=== PATIENT | female | born 1970 | race Caucasian/White ===

== ENCOUNTER 2024-01-22 06:30 | Emergency (ER) | payer OTHER, SELFPAY ==
[2024-01-22] VITALS (12 sets, daily range): BP systolic 129–166; BP diastolic 81–119; PULSE 52–60; RESP 16; TEMP 36.6; O2SAT 97–100; BMI 22.3
--- NOTE | 2024-01-22 06:57 | CRLHL7_ITS ---
For Patients: As a result of the Century Cures Act, medical imaging exams and procedure reports are released immediately into your electronic medical record. You may view this report before your referring provider. If you have questions, please contact your health care provider. INDICATION: Left-sided pain. COMPARISON: None TECHNIQUE: PA and lateral views of the chest were acquired FINDINGS: TUBES AND LINES: None. HEART AND MEDIASTINUM: The heart size is normal. The mediastinal contour appears normal for patient age. LUNGS AND PLEURAL SPACES: The lungs appear normal.The pleural spaces are unremarkable. OSSEOUS STRUCTURES: Age-appropriate appearance. No acute focal finding. IMPRESSION: No evidence of active pulmonary disease. Dictated by Warren Bailey MD @ 01/22/2024 7:41:29 AM (Electronically Signed)
--- NOTE | 2024-01-22 06:59 | ED_ITS ---
HPI - General Adult General Chief complaint: Chest Pain Stated complaint: Chest Pain Time Seen by Provider: 01/22/24 06:33 Source: patient Mode of arrival: ambulatory Limitations: no limitations History of Present Illness HPI narrative: 53-year-old female presents the emergency department with left-sided chest pain that started about 2-1/2 hours prior to arrival. Pain is located in the left lateral anterior chest wall, high on the chest CT, above the nipple line radiating into the left axilla. Worse with a deep breath. No productive cough, fever or shortness of breath. No prior history of DVT or PE. She reports that she did not try taking any treatments to help with her symptoms. 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 She reports that 1 of them checked her vital signs and reported that her heart rate was irregular. She has no prior history of irregular heartbeat. She does have a modern apple watch and did not receive notifications of a rrhythmia recently. No prior history of echo or Holter monitor that she believes. She thinks that she probably did have a stress test but was about 15 years ago and was reported to be normal. She has been struggling with some ongoing cervical spine pain that radiates down to the levator area. She states that she takes Aleve twice daily for this. She has been recommended to do physical therapy but has not been able to work that into her schedule. No trauma or injury. No prior history of heart failure or valvular heart disease. She is a nonsmoker. She was given aspirin prior to transport to the ED by her nurse coworkers. Denies any other physical ailments, neurological changes, HEENT or GI concerns. No prior surgical history to the neck, chest or back. Did not try any other interventions prior to coming to ED. Past medical history notable for hypothyroidism, has previously been on Synthroid in the past but no longer. Outpatient medications are a combination of hormone replacement therapy medications. Reports that she does not know which doses these are better review of the record shows that she is taking a mg of estradiol and 100 mg of progesterone every night. These are oral and not transdermal. ROS is notable for the chest wall pain otherwise only, otherwise denies times 12 systems. Related Data Home Medications ?Medication ?Instructions ?Recorded ?Confirmed estradiol 1 mg tablet 1 mg PO DAILY 01/22/24 01/22/24 progesterone micronized 100 mg 100 mg PO QPM 01/22/24 01/22/24 capsule Allergies Allergy/AdvReac Type Severity Reaction Status Date / Time No Known Drug Allergies Allergy Verified 01/22/24 06:39 [facility] Social History Do you use any of these nicotine containing products: None Non-prescribed substance use: denies use Exam Const: Vital Signs, click to edit/add: Vital Signs - 24 hr 01/22/24 06:35 01/22/24 06:44 01/22/24 06:47 Temperature 98 F Pulse Rate 59 L 54 L Pulse Rate [Pulse Oximeter] 55 L Respiratory Rate 16 Blood Pressure 158/89 H Blood Pressure [Ri ght Upper Arm] 166/119 H Pulse Oximetry 99 100 100 Oxygen Delivery Me thod Room Air 01/22/24 07:00 01/22/24 07:02 Temperature Pulse Rate 58 L 55 L Pulse Rate [Pulse Oximeter] Respiratory Rate Blood Pressure 151/84 H Blood Pressure [Ri ght Upper Arm] Pulse Oximetry 99 99 Oxygen Delivery Me thod Documenting provider has reviewed patient's vital signs: yes Common normals: no apparent distress General appearance: cooperative, comfortable and well kempt HENMT: Common normals: normocephalic Head and scalp: normocephalic Face and sinus: normal facial exam Mouth: oral and palatal mucosa normal Throat: posterior oropharynx normal Eye: Common normals: conjunctivae normal General eye: normal appearance of both eyes Conjunctiva: conjunctiva(e) normal Neck & C-Spine: Common normals: full ROM and no lymphadenopathy Chest: Common normals: inspection of chest normal and palpation of chest normal Resp: Common normals: normal respiratory effort, no use of accessory muscles and clear to auscultation bilaterally Effort & inspection: able to speak in complete sentences Auscultation: clear to auscultation bilaterally Cardio: Common normals: regular rate and regular rhythm Rate: regular rate Rhythm: regular rhythm Other: Slight early systolic murmur and prominent S2 but no obvious gallop. GI: Common normals: Normal to inspection, nondistended, normoactive bowel sounds present, soft to palpation, non-tender, no hepatosplenomegaly and no masses Palpation: soft and no hepatosplenomegaly Back & Pelvis: Common normals: thoracic and lumbar spine normal to inspection Extremity: Common normals: normal to inspection, normal capillary refill and no pedal edema Neuro: Speech: speech normal Motor exam: no movement abnormalities noted Psych: Common normals: thought process normal Appearance: well kempt Attitude: engaged Activity/motor behavior: appropriate eye contact Mood and affect: euthymic mood Thought process: normal thought process Insight: insight good Judgement: judgment good Skin: Common normals: no rashes or lesions noted General skin exam: no rashes or lesions noted Course Course ED Course: 53-year-old female on oral hormone replacement therapy presenting with left- sided chest wall pain worse with inspiration. No other risk factors for cardiovascular disease. Initial exam is reassuring. Will obtain EKG, typical cardiac labs, chest x-ray. Differential diagnosis including cervical radiculopathy affecting C5-C6 which could radiate down into the chest wall, pulmonary embolism in the setting of oral estrogen use, pleurisy, musculoskeletal pain, acute coronary syndrome, heart failure, atypical pneumonia, shingles though exam was reassuring, referred pain, amongst others. Patient has already been given aspirin. Will obtain the studies as above and await findings. Anticipate handing over care to incoming day shift partner. Will plan for 2nd troponin 90-120 minutes after 1st. Reevaluation(s) Time of Reevaluation #1: 08:02 Reevaluation #1: Patient's symptoms continue to improve. Reviewed normal lab findings. Chest x- ray also reassuring. Second troponin will be drawn about 45 minutes, she declines to wait for this today. I stressed the importance of a 2nd troponin in the workup but she agrees that it does not seem like this is related to her heart.. Suspect musculoskeletal etiology for her chest pain. Would recommend Tylenol, ibuprofen. If she continues to experience symptoms, would recommend primary care follow-up and a a repeat stress test. Did encourage her to pursue the planned physical therapy recommended by her primary care physician. Alarm symptoms reviewed and written instructions provided. Vital Signs Vital signs: Initial Vital Signs Temperature 98 F 01/22/24 06:35 Temperature Source Temporal Artery Scan 01/22/24 06:35 Pulse Rate 55 L 01/22/24 06:35 Respiratory Rate 16 01/22/24 06:35 Blood Pressure 166/119 H 01/22/24 06:35 Blood Pressure Mean 134 H 01/22/24 06:35 Blood Pressure Position Sitting 01/22/24 06:35 Pulse Oximetry 99 01/22/24 06:35 Oxygen Delivery Method Room Air 01/22/24 06:35 Vital Signs Temperature 98 F 01/22/24 06:35 Pulse Rate 55 L 01/22/24 06:35 Respiratory Rate 16 01/22/24 06:35 Blood Pressure 166/119 H 01/22/24 06:35 Pulse Oximetry 99 01/22/24 06:35 Oxygen Delivery Method Room Air 01/22/24 06:35 Temperature 98 F 01/22/24 06:35 Pulse Rate 55 L 01/22/24 07:02 Respiratory Rate 16 01/22/24 06:35 Blood Pressure 151/84 H 01/22/24 07:02 Pulse Oximetry 99 01/22/24 07:02 Oxygen Delivery Method Room Air 01/22/24 06:35 Medications Administered Medications: Discontinued Medications Generic Name Dose Route Start Last Admin Trade Name Freq PRN Reason Stop Dose Admin Aspirin 324 mg 01/22/24 07:16 01/22/24 07:41 Aspirin 81 Mg Tab.Chew PO 01/22/24 07:17 324 mg ONCE ONE Administration Medical Decision Making Lab Data Lab results reviewed: Yes I reviewed the patient's lab results Lab results narrative: Labs all reassuring for age. No significant inflammation, infection. D-dimer not suggestive of PE. Improved blood pressure noted. Labs: Lab Results 01/22/24 Range/Units 07:00 WBC 6.37 (4.50-11.00) K/uL RBC 3.90 L (4.00-5.20) m/uL Hgb 12.6 (12.0-16.0) gm/dL Hct 37.4 (33.0-51.0) % MCV 96 (80-100) fL MCH 32 (26-34) pg MCHC 34 (32-36) gm/dL RDW Coeff of Nino 11.9 (11.5-15.5) % Plt Count 214 (140-440) K/uL Neut % (Auto) 72.8 H (42.0-72.0) % Lymph % (Auto) 18.1 L (20-44) % [place] % (Auto) 6.8 (0.0-11.0) % Eos % (Auto) 2.0 (0.0-7.0) % Baso % (Auto) 0.3 (0.0-3.0) % Neut # (Auto) 4.60 (1.7-7.0) K/uL Lymph # (Auto) 1.20 (0.90-2.90) K/uL [place] # (Auto) 0.40 (0.00-0.90) K/UL Eos # (Auto) 0.13 (0.00-0.50) K/uL Baso # (Auto) 0.02 (0.00-0.30) K/uL Abs Immat Gran (auto) 0.00 (0.00-0.30) K/uL Imm/Tot Granulo (auto) 0.0 % D-Dimer Quant (PE/DVT) 0.52 H (0.00-0.50) ug/ml Sodium 138 (135-149) mmol/L Potassium 4.0 (3.6-5.1) mmol/L Chloride 108 (96-114) mmol/L Carbon Dioxide 27 (20-32) mmol/L Anion Gap 3 L (7-15) mEq/L BUN 19 (7-30) mg/dL Creatinine 0.8 (0.5-1.5) mg/dL Estimated Creat Clear 70.23 Estimated GFR 88 ml/min Glucose 100 (60-115) mg/dL Calcium 8.5 (8.4-10.6) mg/dL Troponin I < 0.01 L (0.01-0.04) ng/mL C-Reactive Protein < 0.5 L (0.5-1.0) mg/dL NT-Pro-B Natriuret Pep 98 pg/mL POC Troponin I 0.00 L (0.01-0.04) ng/ml Imaging Data Chest x-ray: Attestation: I have reviewed the pertinent imaging results. My impression: Normal chest x-ray Radiologist's impression: IMPRESSION: No evidence of active pulmonary disease. Dictated by Warren Bailey MD @ 01/22/2024 7:41:29 AM ECG Data Attestation: I personally reviewed and interpreted this ECG as follows: Prior ECG tracings: not available for review Interpretation: Normal sinus rhythm, rate of 60. Normal intervals and axis. P-waves in lead 2 are little bit enlarged, minimal septal changes that are nondiagnostic for acute ischemia. No significant T-wave abnormalities. Discharge Plan Discharge Clinical Impression: Acute chest wall pain Patient Disposition: Home, Self-Care Condition: Improved Instructions: Chest Wall Pain (ED) Additional Instructions: As we discussed, your blood tests and x-ray are normal. You declined to wait for the 2nd round of blood tests which is reasonable. I would recommend you continue taking 1 Aleve 2 times daily. I would like for you to add in Tylenol arthritis 2 times a day also. I would recommend that those be a couple of hours after the Tylenol and then again early afternoon, or evening based on your needs. I do think that the only solution for you is starting the physical therapy that was recommended by your primary care doctor. If you have escalating symptoms, I would recommend that you seek out a stress test or come to the emergency department if they are sudden and severe. You may return to full work duties unrestricted. Activity Level: No Restrictions Prescriptions: No Action estradiol 1 mg tablet 1 mg PO DAILY progesterone micronized 100 mg capsule 100 mg PO QPM Follow Up/Referrals: Elisa Rueda MD [Primary Care Provider] - Stand Alone Forms: [employer] Info Instructions
[2024-01-22 07:13] LABS: Basophils Absolute Auto 0.02 K/uL (0.00-0.30); Basophils Percent Auto 0.3 % (0.0-3.0); Eosinophils Absolute Auto 0.13 K/uL (0.00-0.50); Hematocrit 37.4 % (33.0-51.0); Hemoglobin* 12.6 gm/dL (12.0-16.0); Lymphocytes Percent Auto 18.1 % (20-44); Mean Corpuscular HGB Conc 34 gm/dL (32-36); Mean Corpuscular Hemoglobin 32 pg (26-34); Mean Corpuscular Volume 96 fL (80-100); Monocytes Percent Auto 6.8 % (0.0-11.0); Neutrophils Percent Auto 72.8 % (42.0-72.0); Platelet Count* 214 K/uL (140-440); RDW Coefficient of Variation % 11.9 % (11.5-15.5); White Blood Count* 6.37 K/uL (4.50-11.00)
[2024-01-22 07:23] LABS: Slide Review Reflex No
[2024-01-22 07:25] LABS: Chloride* 108 mmol/L (96-114); Sodium* 138 mmol/L (135-149)
[2024-01-22 07:28] LABS: Anion Gap 3 mEq/L (7-15); Blood Urea Nitrogen* 19 mg/dL (7-30); Carbon Dioxide* 27 mmol/L (20-32); Creatinine* 0.8 mg/dL (0.5-1.5); Est. Creatinine Clearance* 70.23; Estimated Glomerular Filt Rate 88 ml/min
[2024-01-22 07:29] LABS: Calcium* 8.5 mg/dL (8.4-10.6); Glucose* 100 mg/dL (60-115)
[2024-01-22 07:30] LABS: D Dimer Quantitative* 0.52 ug/ml (0.00-0.50)
[2024-01-22 07:36] LABS: C Reactive Protein* < 0.5 mg/dL (0.5-1.0)
[2024-01-22] MEDS: ASPIRIN 81 MG TAB.CHEW 324 MG PO (07:41)
[2024-01-22 07:42] LABS: NT Pro B Type NatriureticPept* 98 pg/mL; Troponin I* < 0.01 ng/mL (0.01-0.04)
== END 2024-01-22 08:24 | disposition home or self-care (01) ==
PROVIDERS: Emergency Provider Family Medicine; PCP Family Medicine
DX: R07.89 Other chest pain (principal)
CPT/HCPCS: 36415; 71046; 80048; 83880; 84484; 85025; 85379; 86140; 93005; 99284; 99285; A9270

== ENCOUNTER 2025-01-04 16:05 | Outpatient (CLI) | payer OTHER, SELFPAY | END 2025-01-04 16:06 | disposition home or self-care (01) | LOC: NFLDREF 01-10 03:32 | PROVIDERS: Visit Provider Physician Assistant | DX: A69.20 Lyme disease, unspecified (principal) | CPT/HCPCS: 86618 ==

== ENCOUNTER 2025-01-20 19:35 | Emergency (ER) | payer OTHER, SELFPAY ==
--- OUTSIDE RECORDS SUMMARY | 2015-09-01 11:27 | XMS_ITS | Continuity of Care Document ---
Author Organization [facility] Address [address] [address] [place] [address] Phone Care Team Providers Care Logistics Lead Name Role Phone Pricilla Warren MD Unavailable Unavailable Allergies, Adverse Reactions, Alerts Substance Reaction Status Criticality No Known Allergies Active No Inform ation Medications Medication Instructions Dosage Effective Dates (start - stop) Status Comments Synthroid 25 mcg tablet take 1 tablet by oral route every day 25 MCG - Active Procedures Procedure Date Offic/outpt E&m New Mod-ok Advance Directives Directive Yes / No Effective Date File Name No Information Encounters Encounter Description Practice Location Reason(s) For Visit Diagnoses Date Provider Providers Copied on Encounter [facility], [address] [address], [place], [place], [id number], [place] tel:[phone] [facility] No Information 6 Kelvin Pleitez. [address] [place] [address], [place] [address], [place], [place], [id number] , [place]. tel: [phone] Offic/outpt E&m [facility], [address] [address], [place], [id number], [place] tel:[phone] [facility] GI Symptoms or Concerns (chief complaint) Chest pain, unspecifiedHeartb urnAbdominal bloating 6 Kelvin Pleitez. [address] [place] [address], [facility] [address], [place], [place], [id number] , [place]. tel:[phone] Family History Family Member Type Diagnosis Age At Onset Mother Problem (finding) gallbladder disease Immunizations Vaccine Date Status Comments Influenza virus vaccine, inj ectable, quadrivalent, split virus, preservative free, 3 years or older Fluarix Quad administered Source: Other Pro vider Payers Payer name Insurance type Covered constitution party ID Authoriza tion(s) No Information Social History Type Description Quantity Date Captured Comments Alcohol Use Details Unknown Caffeine Use Details Unknown Tobacco Use Status No Information Smoking Status No Information Sex Female Chief Complaint And Reason For Visit No Information Reason For Referral Reason For Referral No Information Plan Of Treatment Date Type Action Status Referral Ordered: EGD Appointment date/timeframe: 11/08/2015 ordered Referral Ordered: Lopez PH Monitor Appointment date/timeframe: -today ordered History Of Present Illness Encounter Date Complaint History Of Prese nt Illness GI Symptoms or Concerns This 45- year-old female began having problems of chest discomfort radiating to the back, belching and burning in the chest, starting in the neck area and then proceeding down to the lower portion of the chest postprandially. This began at the end of April of 2015. She had an extensive and negative evaluation in [place], [place], where she lives. This included negative cardiac stress testing, negative upper endoscopy, negative chest x-ray, negative CT scans of chest and abdomen, and negative labs. Her symptoms are generally postprandially and will occur on a daily basis. She describes it more as a discomfort than actual pain. With that discomfort, she finds that it is difficult to take a deep breath. There are times when it feels as if someone is stepping on her chest. Her appetite is good, but she has sitophobia and she has lost a few pounds. She had a trial of double dose PPI and double dose H2 blockers together for a month, without any relief of her symptoms, so the medication was stopped. She is not actually having overt pyrosis.She denies any nausea or emesis. She denies any bowel difficulties. There is no rectal bleeding. She does have some newer onset gas and bloating, but it is not that uncomfortable, and she does not feel that she needs any further evaluation of that particular problem.Following a HIDA scan with a low (17%) EF, the patient then had a cholecystectomy to see if that would help. She says that the gallbladder did not have any stones and had some mild inflammation.The patient had a followup liver tests yesterday, and those were normal (again). It sounds as if pancreatic tests were drawn, and those results are pending. However, the CT scan showed a normal pancreas.The patient is treated for hypothyroidism with a thyroid replacement as her only medication. 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 She lives with her and two children. She denies any new stressors in her life.I lack many of the old records, which have been requested. Functional Status Date Functional Assessmen t No Information Instructions Date Instruction Additional Infor mation Lopez PH Monitor Related to Hear tburn Lopez PH Monitor Assessments Type Assessment Date No Information Patient Care Teams Name Effective Dates (start - stop) Status Members No Information
--- OUTSIDE RECORDS SUMMARY | 2015-09-01 11:27 | XMS_ITS | Continuity of Care Document ---
Author Organization [facility] Address [address] [address] [place] [address] Phone Care Team Providers Care Transitional Living Specialist Name Role Phone Pricilla Warren MD Unavailable Unavailable Allergies, Adverse Reactions, Alerts Substance Reaction Status Criticality No Known Allergies Active No Inform ation Medications Medication Instructions Dosage Effective Dates (start - stop) Status Comments Synthroid 25 mcg tablet take 1 tablet by oral route every day 25 MCG - Active Procedures Procedure Date Offic/outpt E&m New Mod-nj Advance Directives Directive Yes / No Effective Date File Name No Information Encounters Encounter Description Practice Location Reason(s) For Visit Diagnoses Date Provider Providers Copied on Encounter [facility], [address] [address], [place], [place], [id number], [place] tel:[phone] [facility] No Information 6 Kelvin Pleitez. [address] [place] [address], [place] [address], [place], [place], [id number] , [place]. tel: [phone] Offic/outpt E&m [facility], [address] [address], [place], [id number], [place] tel:[phone] [facility] GI Symptoms or Concerns (chief complaint) Chest pain, unspecifiedHeartb urnAbdominal bloating 6 Kelvin Pleitez. [address] [place] [address], [facility] [address], [place], [place], [id number] , [place]. tel:[phone] Family History Family Member Type Diagnosis Age At Onset Mother Problem (finding) gallbladder disease Immunizations Vaccine Date Status Comments Influenza virus vaccine, inj ectable, quadrivalent, split virus, preservative free, 3 years or older Fluarix Quad administered Source: Other Pro vider Payers Payer name Insurance type Covered libertarian ID Authoriza tion(s) No Information Social History [...] had an extensive and negative evaluation in [place], [place], where she lives. This included negative [...] her only medication. 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 She lives with her and two children. [...]
--- OUTSIDE RECORDS SUMMARY | 2025-01-20 19:37 | XMS_ITS | Clinical Summary ---
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 0 Active estradioL 1 mg tabletIndicatio ns:Vasomotor symptoms due to menopause Take 1 Tablet (1 mg) by mouth once daily. 90 Tablet 3 08/24/2024 Active progesterone micronized 100 mg capsuleIndicati ons:Vasomotor symptoms due to menopause Take 1 Capsule (100 mg) by mouth at bedtime. 90 Capsule 3 08/24/2024 Active moxifloxacin (Vigamox) 0.5 % ophthalmic solutionIndicat ions:Cornea abrasion, right, initial encounter Place 1 Drop into right eye four times daily for 7 days. 2.8 mL 01/14/2025 Active erythromycin ophthalmic ointment 0.5%Indications :Cornea abrasion, right, initial encounter Place 1/8th inch ribbon inside the right lower lid before bed for 1 week 3.5 g 01/14/2025 Active Active Problems Problem Noted Date Diagnosed Date Renal cyst 04/30/2019 Iritis, recurrent 07/04/2017 HLA B27 (HLA B27 positive) 07/04/2017 Acute chest wall pain 07/13/2015 Overview (07/13/2015): EGD 06/2015 possible mild reflux Subclinical hypothyroidism 05/22/2012 Myxoid tumor of left thigh, s/p resection 2009 Overview (08/26/2009): MRI Jun 2009: 5cm mass in left thigh, needs Orthopedic Oncologist evaluation. 07/20/09: saw Dr. Bustamante at [facility] with biopsy. July 2009: surgical excision of mass: pathology intramuscular Myxoma, follow up with Dr. Bustamante only as needed. Pap smear for cervical cancer screening Overview (05/26/2021): 04/2021 NIL/HPV negative. Plan: Pap/HPV due 04/2026 Resolved Problems Problem Noted Date Diagnosed Date Resolved Date Thyroid nodule 05/17/2023 08/24/2024 Encounters Date Type Department Care Team Description 01/14/2025 2:40 PM CDT Office Visit [facility] [address] [facility] [place] [address] Carlin Hunter, OD Eye Problem (scratch on eye) 01/14/2025 Travel from Last 3 Months Immunizations Immunization Administration Dates Next Due COVID-19 vaccine (Moderna 10 0mcg/0.5mL) PF, MDV 03/27/2021,06/28/2020,05/31/2020 Influenza A (H1N1), Inactivated 04/03/2023 Influenza, IIV3 (Age >=3 years) 03/13/2016,03/11 Influenza, IIV4 02/18/2022,04/04/2014 Influenza, IIV4 (=>6mos) MDV 02/17/2018 Td (Age >=7 Years) 02/09/2004 Td, Preservative Free (age >= 7 Years) 8 Tdap 03/24/2007 Family History Medical History Relation Name Comments Other Father pace maker Cancer Maternal Grandmother liver Hypertension Mother Genetic Other none Cancer Paternal Grandmother kidney Cancer-breast Paternal Grandmother diagno sed in her 40's Relation Name Status Comments Father Maternal Grandmother Mother Other Paternal Grandmother Social History Tobacco Use Types Packs/Day Years Used Date Smoking Tobacco: Never Smokeless Tobacco: Never Tobacco Cessation:Counseling Given: Yes Alcohol Use Standard Drinks/Week Comments Yes 1 (1 standard drink = 0.6 oz pur e alcohol) on occasion PHQ-2 Answer Date Recorded PHQ-2 TOTAL SCORE 0 10/18/2023 Social Connections Answer Date Recorded Do you often feel lonely or isolated from those around you? 0 08/23/2024 Financial Resource Strain Answer Date R ecorded Difficulty of Paying Living Expenses 3 08/23/2024 Difficulty of Paying Living Expenses Not on file 08/23/2024 Food Insecurity Answer Date Recorded Do you worry your food will run out before you are able to buy more? 1 08/23/2024 Transportation Needs Answer Date Record ed Does lack of transportation keep you from medica l appointments? 1 08/23/2024 Does lack of transportation keep you from work, meetings or getting things that you need? 1 08/23/2024 Housing Stability Answer Date Recorded What is your housing situation today? 1 08/23/2024 Utilities Answer Date Recorded Do you have trouble paying f or utilities (for example, heat, electricity, water, phone)? 1 08/23/2024 Comments No Sex and Gender Information Value Date Recorded Sex Assigned at Not on file Legal Sex Female 6:19 AM MEDICAL CLAIMS SPECIALIST Gender Identity Not on file Sexual Orientation Not on file Occupation Industry Job Start Date Job End Date Not on file Not on file Not on file Not on file Obstetrics History Para Term AB IAB SAB Ectopic Multiple Livin g Live Births 2 2 1 1 0 0 0 0 2 2 Date Outcome GA Total Labor Labor/2nd/3rd Weight Sex Type Anes PTL Ruthann A1 A5 Name Clin Living Term Living Last Filed Vital Signs Vital Sign Reading Time Taken Comments Blood Pressure 144/85 08/24/2024 7:45 AM CDT Pulse 52 08/24/2024 7:45 AM CDT Temperature 36.8 C (98.2 F) 05/17/2023 7:47 AM MEDICAL CLAIMS SPECIALIST Respiratory Rate 16 06/08/2019 2:57 PM MEDICAL CLAIMS SPECIALIST Oxygen Saturation 100% 08/24/2024 7:45 AM CDT Inhaled Oxygen Concentration - - Weight 59.9 kg (132 lb) 08/24/2024 7:45 AM CDT Height 162.6 cm (5' 4) 08/24/2024 7:45 AM CDT Body Mass Index 22.66 08/24/2024 7:45 AM CDT Plan of Treatment Health Maintenance Due Date Last Done Comments Hepatitis C screening for ag e 18-79 1988 Hepatitis B series for 19+ ( 1 of 3 - 19+ 3-dose series) 1989 Pneumococcal series for age 50+ (1 of 1 - PCV) 2020 Zoster (shingles) series for age 50+ (1 of 2) 2020 Depression screening for age 12+ 10/17/2024 10/18/2023, 05/03/2022, 04/28/2021, Additional history exists COVID-19 vaccine series ( season) 2025 02/28/2022, 03/27/2021, 06/28/2020, Additional history exists Influenza Vaccine (#1) 2025 , 02/17/2018, 03/13/2016, Additional history exists Mammogram for age 45-75 06/08/2025 06/08/19, 05/16/2023, 03/05/2022, Additional history exists BMI (ht and wt on same day) for age 18+ 08/24/2025 08/24/2024, 05/17/2023, 05/03/2022, Additional history exists Pap test for age 21-65 04/26/2026 , 04/26/2021, 07/03/2017, Additional history exists Tetanus booster 07/03/2027 07/03/2017, 09/2006, 02/09/2004 Fecal testing sDNA-FIT ([place] guard) for age 45-75 09/15/2027 09/14/2024, 05/15/2021, 05/15/2021 Lipids for age 45-75 08/19/2029 08/19/2024, 05/17/2023, 07/03/2017, Additional history exists RSV vaccine for adults or (1 - 1-dose 75+ series) 2045 HIV for age 15-65 Completed 02/15/2016 Procedures Procedure Name Priority Date/Time Associated Diagnosis Comments SDNA-FIT EXTERNAL (COLOGUARD) Routine 09/14/2024 5:20 AM CDT Colon cancer screening LIPID PANEL W REFLEX MEASURED LDL Routine 08/19/2024 8:07 AM CDT Screening for hyperlipidemia Annual physical exam XR MAMMO GURJIT BILAT SCREEN Routine 06/08/2024 7:13 AM MEDICAL CLAIMS SPECIALIST Visit for screening mammogram HPV HIGH RISK Routine 04/26/2021 3:17 PM MEDICAL CLAIMS SPECIALIST Screening for cervical cancer ANTI HIV 1/2 Routine 02/15/2016 5:16 PM CDT Eye inflammation from Last 3 Months or Most Recently Relevant to Health Maintenance Results * SDNA-FIT EXTERNAL (COLOGUARD) (09/14/2024 5:20 AM CDT) NONINV COLON CA DNA+OCC BLD SCRN STL-IMP Negative Negative 09/17/2024 9:45 PM CDT [facility] (CLIA #:[id number]) Comment: The Cologuard (TM) test was performed on this specimen. NEGATIVE TEST RESULT. A negative Cologuard result indicates a low likelihood that a colorectal cancer (CRC) or advanced adenoma (adenomatous polyps with more advanced pre-malignant features) is present. The chance that a person with a negative Cologuard test has a colorectal cancer is less than 1 in 1500 (negative predictive value >99.9%) or has an advanced adenoma is less than 5.3% (negative predictive value 94.7%). These data are based on a prospective cross-sectional study of 10,000 individuals at average risk for colorectal cancer who were screened with both Cologuard and colonoscopy. (Karena Nicole et al, N Engl J Med 2014;370(14):1286- 1297) The normal value (reference range) for this assay is negative. COLOGUARD RE-SCREENING RECOMMENDATION: Periodic colorectal cancer screening is an important part of preventive healthcare for asymptomatic individuals at average risk for colorectal cancer. Following a negative Cologuard result, the [place] [employer] Society and U.S. Multi-Society Task Force screening guidelines recommend a Cologuard re-screening interval of 3 years. References: [place] [employer] Guideline for Colorectal Cancer Screening: https://www.cancer.org/cancer/hfmbz-agrdqe-koftoc/ajaxringo-bgrielana-ypqdzsn/ac s-rec ommendations.html.; Tyler CARL, Bhavik FAJARDO, Hao SolanoK, Colorectal Cancer Screening: Recommendations for Physicians and Patients from the U.S. Multi-Society Task Force on Colorectal Cancer Screening , Am J Gastroenterology 2017; 112:6987-7012. TEST DESCRIPTION: Composite algorithmic analysis of stool DNA-biomarkers with hemoglobin immunoassay. Quantitative values of individual biomarkers are not reportable and are not associated with individual biomarker result reference ranges. Cologuard is intended for colorectal cancer screening of adults of either sex, 45 years or older, who are at average-risk for colorectal cancer (CRC). Cologuard has been approved for use by the U.S. FDA. The performance of Cologuard was established in a cross sectional study of average-risk adults aged 50-84. Cologuard performance in patients ages 45 to 49 years was estimated by sub-group analysis of near-age groups. Colonoscopies performed for a positive result may find as the most clinically significant lesion: colorectal cancer [4.0%], advanced adenoma (including sessile serrated polyps greater than or equal to 1cm diameter) [20%] or non- advanced adenoma [31%]; or no colorectal neoplasia [45%]. These estimates are derived from a prospective cross-sectional screening study of 10,000 individuals at average risk for colorectal cancer who were screened with both Cologuard and colonoscopy. (Karena Levy. et al, N Engl J Med 2014;370(14):1999-6027.) Cologuard may produce a false negative or false positive result (no colorectal cancer or precancerous polyp present at colonoscopy follow up). A negative Cologuard test result does not guarantee the absence of CRC or advanced adenoma (pre-cancer). The current Cologuard screening interval is every 3 years. ([place] [employer] Society and U.S. Multi-Society Task Force). Cologuard performance data in a 10,000 patient pivotal study using colonoscopy as the reference method can be accessed at the following location: www.Authorea/results. Additional description of the Cologuard test process, warnings and precautions can be found at www.cologuard.com. Stool specimen (specimen) (Rectum) 09/14/2024 5:20 AM CDT 09/15/2024 9:24 AM CDT Nedra Drake MD URINE Fi nal Result [facility] (CLIA #:[id number]) [address] [place] [address], * LIPID PANEL W REFLEX MEASURED LDL (08/19/2024 8:07 AM CDT) CHOLESTEROL, TOTAL 178 <200 mg/dL [facility] HDL CHOLESTEROL 64 > OR = 50 mg/dL [facility] TRIGLYCERIDES 105 <150 mg/dL [facility] LDL-CHOLESTEROL 94 mg/dL (calc) [facility] Comment: Reference range: <100 Desirable range <100 mg/dL for primary prevention; <70 mg/dL for patients with CHD or diabetic patients with > or = 2 CHD risk factors. LDL-C is now calculated using the Mil-Hassan calculation, which is a validated novel method providing better accuracy than the Friedewald equation in the estimation of LDL-C. Mil SS et al. NATALEE. 2013;310(19): 2725-1264 (http://education.[employer]/faq/ZEF036) CHOL/HDLC RATIO 2.8 <5.0 (calc) [facility] NON HDL CHOLESTEROL 114 <130 mg/dL (calc) [facility] Comment: For patients with diabetes plus 1 major ASCVD risk factor, treating to a non-HDL-C goal of <100 mg/dL (LDL-C of <70 mg/dL) is considered a therapeutic option. Blood BLOOD SPECIMEN / Unknown 08/19/2024 8:07 AM CDT 08/19/2024 8:08 AM CDT us Nedra Drake MD CHEMISTRY Fi nal Result [facility] [address] [place] [address], [facility] [address] [place] [address] * XR MAMMO GURJIT BILAT SCREEN (06/08/2024 7:13 AM MEDICAL CLAIMS SPECIALIST) Anatomical Region Laterality Modality BREASTS, Breast Left, Breast Right Bilateral Mammography Impressions 06/10/2024 1:33 PM MEDICAL CLAIMS SPECIALIST There is no radiographic evidence for malignancy. Recommend annual mammograms. MAMMOGRAM ASSESSMENT: ACR 1 Negative PATIENTS: You will also receive a letter with your examination results in an easy to read format. If you have questions about your results, please contact your referring provider. Narrative 06/10/2024 1:33 PM MEDICAL CLAIMS SPECIALIST For Patients: As a result of the Cures Act, medical imaging exams and procedure reports are released immediately into your electronic medical record. You may view this report before your referring provider. If you have questions, please contact your health care provider. XR MAMMO GURJIT BILAT SCREEN [[id number]] CLINICAL HISTORY: This is an asymptomatic 54 y.o. patient. INDICATION FOR EXAM: Mammogram Screening. TECHNIQUE: CC & MLO views were obtained. This study was evaluated with the assistance of Computer-Aided Detection. Breast Tomosynthesis was used in interpretation. COMPARISON FILM: Yes [facility]23 [facility] 03[facility]22 [facility] FINDINGS: There are scattered areas of fibroglandular density. There are no dominant masses, suspicious micro calcifications or areas of architectural distortion. Nedra Drake MD MAMMO Fi nal Result * HPV HIGH RISK (04/26/2021 3:17 PM MEDICAL CLAIMS SPECIALIST) TYPE 16 Negative Negative 04/28/2021 2:51 PM MEDICAL CLAIMS SPECIALIST [facility] TYPE 18 Negative Negative 04/28/2021 2:51 PM MEDICAL CLAIMS SPECIALIST [facility] OTHER HIGH RISK TYPES Negative Negative 04/28/2021 2:51 PM MEDICAL CLAIMS SPECIALIST [facility] Other (Cervical) Non-Blood / Unknown 04/26/2021 3:17 PM MEDICAL CLAIMS SPECIALIST 04/27/2021 11:43 AM MEDICAL CLAIMS SPECIALIST Narrative [facility] - 04/28/2021 2:51 PM MEDICAL CLAIMS SPECIALIST HPV types 16, 18, 31, 33, 35, 39, 45, 51, 52, 56, 58, 59, 66 and 68 DNA were undetectable or below the pre-set threshold. Methodology: Jina Wilfredo 4800 HPV Test us Elisa Rueda MD MICROBIOLOGY Final Result [facility] [address] [place] [address], * ANTI HIV 1/2 (02/15/2016 5:16 PM CDT) HIV-1/HIV-2 ANTIBODY Non-Reacti ve Non-Reacti ve 02/16/2016 3:02 PM CDT [facility] Blood BLOOD SPECIMEN / Unknown Venipuncture / Unknown 02/15/2016 5:16 PM CDT 02/15/2016 5:16 PM CDT Narrative [facility] - 02/16/2016 3:02 PM CDT HIV-1 p24 and HIV-1/HIV-2 Ab not detected us Elisa Rueda MD SEND OUTS Final Result [facility] [address] [place] [address], from Last 3 Months or Most Recently Relevant to Health Maintenance Insurance [employer] ELECT Care Teams Lithographic Proofer Apprentice Relationship Specialty Start Date End Date Nedra Drake MD [address] [place] [address] PCP - General Family Practice 05/01/23 Raman Godwin MD [address] [place] [facility] [address] [place] [address] Rheumatology Rheumatology 07/10/17
[2025-01-20 19:43] VITALS: BP 170/90; PULSE 60; RESP 18; TEMP 36.8; O2SAT 98; BMI 21.5
--- NOTE | 2025-01-20 19:53 | CRLHL7_ITS ---
For Patients: As a result of the Century Cures Act, medical imaging exams and procedure reports are released immediately into your electronic medical record. You may view this report before your referring provider. If you have questions, please contact your health care provider. Indication: Right eye swelling, known herpes zoster ophthalmicus Technique: CT of the orbits following 62 mL Isovue 370 IV contrast. Comparison: Same-day CT head Findings: Brain: Better assessed on same day CT head. Orbits: Extensive right periorbital soft tissue edema. Mild conjunctival hyperemia. No significant intraorbital abnormality is appreciated. No fracture. Maxillofacial structures; visualized maxillofacial structures beyond the orbits are grossly unremarkable. Sinuses: Unremarkable. Other: No other significant abnormality appreciated. Impression: Extensive right periorbital soft tissue edema and conjunctival hyperemia, otherwise unremarkable examination. Please note that all CT scans at this facility use dose modulation, iterative reconstruction, and/or weight-based dosing when appropriate to reduce radiation dose to as low as reasonably achievable. Dictated by Patricio Henriquez MD @ 01/20/2025 9:08:19 PM (Electronically Signed)
[2025-01-20 20:00] LABS: Hematocrit 38.9 % (33.0-51.0); Hemoglobin* 13.1 gm/dL (12.0-16.0); Immature Granulocytes Abs Auto 0.00 K/uL (0.00-0.30); Immature Granulocytes Pct Auto 0.0 %; Lymphocytes Absolute Auto 1.50 K/uL (0.90-2.90); Mean Corpuscular HGB Conc 34 gm/dL (32-36); Mean Corpuscular Hemoglobin 31 pg (26-34); Mean Corpuscular Volume 93 fL (80-100); RDW Coefficient of Variation % 11.5 % (11.5-15.5); Red Blood Count 4.18 m/uL (4.00-5.20); Slide Review Reflex No; White Blood Count* 3.91 K/uL (4.50-11.00)
[2025-01-20] MEDS: LACTATED RINGERS 1000 ML 1,000 ML IV (20:02)
[2025-01-20] MEDS: METOCLOPRAMIDE HCL 5 MG/ML INJ 10 MG IVP (20:02)
[2025-01-20 20:03] VITALS: TEMP 36.8
[2025-01-20 20:11] LABS: Chloride* 104 mmol/L (96-114); Potassium* 3.7 mmol/L (3.6-5.1); Sodium* 135 mmol/L (135-149)
[2025-01-20 20:14] LABS: Anion Gap 4 mEq/L (7-15); Blood Urea Nitrogen* 14 mg/dL (7-30); Calcium* 8.5 mg/dL (8.4-10.6); Carbon Dioxide* 27 mmol/L (20-32); Creatinine* 0.8 mg/dL (0.5-1.5); Est. Creatinine Clearance* 69.42; Estimated Glomerular Filt Rate 88 ml/min; Glucose* 131 mg/dL (60-115)
--- NOTE | 2025-01-20 20:17 | ED.SKABFB ---
HPI - Skin/Abscess/Foreign Bdy General Date Seen: 01/20/25 Chief complaint: Skin/Abscess/Foreign Body Stated complaint: shingles around eyes Time Seen by Provider: 01/20/25 19:47 Source: patient Mode of arrival: ambulatory Limitations: no limitations History of Present Illness HPI narrative: Patient is a 54-year-old female presenting to the emergency department for headache. She was diagnosed with herpes zoster ophthalmicus on 01/17/2025. She began having eye pain on 01/13 and developed blisters along the right orbit on 01/16/25. She went to urgent care on 01/17 and was started on valacyclovir and gabapentin. She saw [facility] that day and was also started on eyedrops for her right eye. Since then patient has noticed increased swelling around the right eye is developing headache. She states she feels like the headache is from all the pressure from the eye swelling. She states she is unable to open the right eye due to the swelling but the pain is tolerable. She says mostly just discomfort. Her main complaint is a headache which she rates as an 8/10 frontal headache. Denies having headache like this before. States it has been going on for the past few days. Patient spoke to her lap hand tool today who told her to come to the emergency department. I did speak to the on-call provider for [facility] who asked us to do a CT scan to rule out any abscess or orbital cellulitis. Patient denies when headedness, dizziness, chest pain, shortness of breath, fevers, chills. No other concerns noted although she does state she feels like there is some swelling starting developed to the medial portion of her left eye. Related Data Home Medications ?Medication ?Instructions ?Recorded ?Confirmed estradiol 1 mg tablet 1 mg PO DAILY 01/22/24 12/21/24 progesterone micronized 100 mg 100 mg PO QPM 01/22/24 12/21/24 capsule erythromycin 5 mg/gram (0.5 %) eye ophthalmic (eye) QPM 01/17/25 01/17/25 ointment moxifloxacin 0.5 % eye drops drp ophthalmic (eye) 01/17/25 01/17/25 Previous Rx's ?Medication ?Instructions ?Recorded gabapentin 300 mg capsule 300 mg PO BID #60 caps 01/17/25 valacyclovir 1 gram tablet 1,000 mg PO QID 7 days #28 tabs 01/17/25 ondansetron 4 mg disintegrating 4 mg PO Q6H #20 tabs 01/20/25 tablet oxycodone 5 mg tablet 5 mg PO Q6H PRN pain #4 tabs 01/20/25 Allergies Allergy/AdvReac Type Severity Reaction Status Date / Time No Known Drug Allergies Allergy Verified 01/17/25 15:00 Review of Systems Status of ROS: Reports: 10 or more systems reviewed and unremarkable except as noted in History and below PFSH PFS Social History Smoking Status: Never smoker Do you use any of these nicotine containing products: None Non-prescribed substance use: denies use Exam Narrative: Exam Narrative: Const: Well-nourished, Well-developed, in mild distress Eyes: Swollen left eye with vesicular lesions around it at varying stages of age. Very mild swelling noted to the medial aspect of the left eye. HENT: Atraumatic external nose and ears. Moist mucous membranes. Neck: Symmetric, trachea midline, No thyromegaly. CVS: RRR, No murmurs or gallops. Peripheral pulses 2+ and equal in all extremities RESP: Unlabored respiratory effort. Clear to auscultation bilaterally. GI: Nontender/Nondistended, No rebound or guarding. MSK:Extremities w/o deformity, Normal Active ROM Skin: Warm, Dry. No rashes or lesions. Neuro: Normal Muscle tone, No focal neurological deficits. Psych: Awake, Alert, & Oriented x3. Appropriate mood and affect. Const: Vital Signs, click to edit/add: Vital Signs - 24 hr 01/20/25 19:43 01/20/25 20:03 01/20/25 20:33 Temperature 98.2 F 98.2 F Pulse Rate 62 Pulse Rate [Pulse Oximeter] 60 Respiratory Rate 18 20 Blood Pressure 136/85 Blood Pressure [Le ft Upper Arm] 170/90 H Pulse Oximetry 98 99 Oxygen Delivery Me thod Room Air 01/20/25 21:24 01/20/25 21:31 01/20/25 21:32 Temperature 98.2 F 98.2 F 98.2 F Pulse Rate Pulse Rate [Pulse Oximeter] 65 65 Respiratory Rate 20 20 Blood Pressure Blood Pressure [Le ft Upper Arm] 144/70 H 144/70 H Pulse Oximetry 99 Oxygen Delivery Me thod Course Vital Signs Vital signs: Initial Vital Signs Temperature 98.2 F 01/20/25 19:43 Temperature Source Temporal Artery Scan 01/20/25 19:43 Pulse Rate 60 01/20/25 19:43 Respiratory Rate 18 01/20/25 19:43 Blood Pressure 170/90 H 01/20/25 19:43 Blood Pressure Mean 116 H 01/20/25 19:43 Blood Pressure Position Sitting 01/20/25 19:43 Pulse Oximetry 98 01/20/25 19:43 Oxygen Delivery Method Room Air 01/20/25 19:43 Vital Signs Temperature 98.2 F 01/20/25 19:43 Pulse Rate 60 01/20/25 19:43 Respiratory Rate 18 01/20/25 19:43 Blood Pressure 170/90 H 01/20/25 19:43 Pulse Oximetry 98 01/20/25 19:43 Oxygen Delivery Method Room Air 01/20/25 19:43 Temperature 98.2 F 01/20/25 21:32 Pulse Rate 65 01/20/25 21:32 Respiratory Rate 20 01/20/25 21:32 Blood Pressure 144/70 H 01/20/25 21:32 Pulse Oximetry 99 01/20/25 21:31 Oxygen Delivery Method Room Air 01/20/25 19:43 Medications Administered Medications: Discontinued Medications Generic Name Dose Route Start Last Admin Trade Name Freq PRN Reason Stop Dose Admin Diphenhydramine HCl 25 mg 01/20/25 19:53 01/20/25 20:03 Diphenhydramine 50 Mg/Ml Inj IVP 01/20/25 19:54 25 mg ONCE ONE Administration Lactated Ringer's 1,000 mls @ 1,000 mls/hr 01/20/25 19:53 01/20/25 21:24 Lactated Ringers 1000 Ml IV 01/20/25 20:52 Infused .Q1H ONE Infusion Ketorolac Tromethamine 15 mg 01/20/25 19:53 01/20/25 20:03 Ketorolac 15 Mg/Ml Inj IVP 01/20/25 19:54 15 mg ONCE ONE Administration Metoclopramide HCl 10 mg 01/20/25 19:53 01/20/25 20:02 Metoclopramide Hcl 5 Mg/Ml Inj IVP 01/20/25 19:54 10 mg ONCE ONE Administration MDM - Skin/Abscess/Foreign Bdy MDM Narrative Medical decision making narrative: Patient is a 54-year-old female presenting to the emergency department for headache and right eye pain. The headache is likely being caused by the shingles would will do CT scan of her head to make sure there is no intracranial abnormalities. Will also treat her with migraine cocktail. She states the pain to right eyes tolerable does not feel like she needs any further pain medication for that. The on-call provider for [facility] does recommend a CT scan for evaluation for possible orbital cellulitis and or an abscess. This will be ordered. Also ordered CBC and BMP. She is feeling much better after the migraine cocktail. States the headache is now tolerable. From that standpoint she feels safe to go home. CT scans reviewed by myself and the radiologist showed no acute concerning abnormalities other than periorbital edema which was already known. At this time she is safe for discharge. Will prescribe her oxycodone for pain and Zofran for nausea. She is agreeable to this plan. She has an appointment scheduled with ophthalmology in 2 days. Lab Data Labs: Lab Results 01/20/25 Range/Units 19:54 WBC 3.91 L (4.50-11.00) K/uL RBC 4.18 (4.00-5.20) m/uL Hgb 13.1 (12.0-16.0) gm/dL Hct 38.9 (33.0-51.0) % MCV 93 (80-100) fL MCH 31 (26-34) pg MCHC 34 (32-36) gm/dL RDW Coeff of Nino 11.5 (11.5-15.5) % Plt Count 214 (140-440) K/uL Neut % (Auto) 45.3 (42.0-72.0) % Lymph % (Auto) 38.6 (20-44) % Rush % (Auto) 12.5 H (0.0-11.0) % Eos % (Auto) 2.8 (0.0-7.0) % Baso % (Auto) 0.8 (0.0-3.0) % Neut # (Auto) 1.80 (1.7-7.0) K/uL Lymph # (Auto) 1.50 (0.90-2.90) K/uL Rush # (Auto) 0.50 (0.00-0.90) K/UL Eos # (Auto) 0.10 (0.00-0.50) K/uL Baso # (Auto) 0.00 (0.00-0.30) K/uL Abs Immat Gran (auto) 0.00 (0.00-0.30) K/uL Imm/Tot Granulo (auto) 0.0 % Sodium 135 (135-149) mmol/L Potassium 3.7 (3.6-5.1) mmol/L Chloride 104 (96-114) mmol/L Carbon Dioxide 27 (20-32) mmol/L Anion Gap 4 L (7-15) mEq/L BUN 14 (7-30) mg/dL Creatinine 0.8 (0.5-1.5) mg/dL Estimated Creat Clear 69.42 Estimated GFR 88 ml/min Glucose 131 H (60-115) mg/dL Calcium 8.5 (8.4-10.6) mg/dL Imaging Data CT scan - head: Attestation: I have reviewed the pertinent imaging results. Radiologist's impression: 1. No CT evidence of acute cortical infarct. No acute intracranial hemorrhage. No other acute intracranial findings. Please note that all CT scans at this facility use dose modulation, iterative reconstruction, and/or weight-based dosing when appropriate to reduce radiation dose to as low as reasonably achievable. Dictated by Josue Stern MD @ 01/20/2025 8:58:[address] scan orbits: Attestation: I have reviewed the pertinent imaging results. Radiologist's impression: Extensive right periorbital soft tissue edema and conjunctival hyperemia, otherwise unremarkable examination. Please note that all CT scans at this facility use dose modulation, iterative reconstruction, and/or weight-based dosing when appropriate to reduce radiation dose to as low as reasonably achievable. Dictated by Patricio Henriquez MD @ 01/20/2025 9:08:19 PM Discharge Plan Discharge Clinical Impression: Herpes zoster, Headache Patient Disposition: Home, Self-Care Condition: Improved Instructions: Acute Headache (DC) Additional Instructions: Take the oxycodone as needed for your eye pain. Use Tylenol ibuprofen home for your headache. Take Zofran as needed for nausea. Make sure to go to your appointment with Ophthalmology on Saturday. Return to emergency department for new or worsening symptoms. Prescriptions: New ondansetron 4 mg tablet,disintegrating 4 mg PO Q6H Qty: 20 0RF oxycodone 5 mg tablet 5 mg PO Q6H PRN (Reason: pain) Qty: 4 0RF No Action erythromycin 5 mg/gram (0.5 %) ointment ophthalmic (eye) QPM moxifloxacin 0.5 % drops ophthalmic (eye) valacyclovir 1 gram tablet 1,000 mg PO QID 7 Days Qty: 28 0RF gabapentin 300 mg capsule 300 mg PO BID Qty: 60 0RF estradiol 1 mg tablet 1 mg PO DAILY progesterone micronized 100 mg capsule 100 mg PO QPM Follow Up/Referrals: Provider,Not a Local [Primary Care Provider, Family Practice] Stand Alone Forms: [facility] Info Instructions
--- NOTE | 2025-01-20 20:18 | CRLHL7_ITS ---
For Patients: As a result of the Century Cures Act, medical imaging exams and procedure reports are released immediately into your electronic medical record. You may view this report before your referring provider. If you have questions, please contact your health care provider. INDICATION: Headaches. TECHNIQUE: CT of the head without contrast. Coronal and sagittal reformats are included. COMPARISON: None. FINDINGS: No CT evidence of acute cortical infarct. No loss of germain white matter differentiation. No hyperdense vessels to suggest intracranial thrombus. No acute intracranial hemorrhage. No mass effect or midline shift. No hydrocephalus or extra-axial collections. White matter is within normal limits for age. No acute osseous abnormalities. Mastoid air cells and paranasal sinuses are clear. Normal soft tissues. IMPRESSION: IMPRESSION:1. No CT evidence of acute cortical infarct. No acute intracranial hemorrhage. No other acute intracranial findings. Please note that all CT scans at this facility use dose modulation, iterative reconstruction, and/or weight-based dosing when appropriate to reduce radiation dose to as low as reasonably achievable. Dictated by Josue Stern MD @ 01/20/2025 8:58:45 PM (Electronically Signed)
[2025-01-20 20:33] VITALS: BP 136/85; PULSE 62; RESP 20; O2SAT 99
[2025-01-20 21:24] VITALS: TEMP 36.8
[2025-01-20 21:31] VITALS: BP 144/70; PULSE 65; RESP 20; TEMP 36.8; O2SAT 99
[2025-01-20 21:32] VITALS: BP 144/70; PULSE 65; RESP 20; TEMP 36.8
== END 2025-01-20 21:45 | disposition home or self-care (01) ==
PROVIDERS: Emergency Provider Student in an Organized Health Care Education/Training Program
DX: R51.9 Headache, unspecified (principal); B02.9 Zoster without complications
CPT/HCPCS: 36415; 70450; 70481; 80048; 85025; 96374; 96375; 99284; J1200; J1885; J2765; J7120; Q9967